=== PATIENT | male | born 1950 | race Two or more races ===

== ENCOUNTER 2023-09-14 18:48 | Emergency (ER) | payer OTHER ==
[~2023-09-14] VITALS: Ht 170.2 cm; Wt 90.7 kg
[2023-09-14] MEDS ORDERED: XARELTO10 MG (19:04)
[2023-09-14] MEDS ORDERED: GLUMETZA500 MG (19:04)
[2023-09-14] MEDS ORDERED: CHILDREN'S ASPI81 MG (19:05)
[2023-09-14] MEDS ORDERED: NASAL MIST126 ML (19:05)
[2023-09-14] MEDS ORDERED: TROPOL (19:05)
[2023-09-14 20:20] LABS: HEMATOCRIT 44.7 % (39.0-48.0); HEMOGLOBIN 15.1 g/dL (13-16.00); MEAN CELL VOLUME 82.1 fL (80.0-100.00); MEAN CORPUSCULAR HEMOGLOBIN 27.6 pg (27.00-32.0); MEAN CORPUSCULAR HGB CONC 33.6 g/dl (32.0-36.0); PLATELET COUNT 240 K/uL (150-450); RED BLOOD COUNT 5.45 M/uL (4.00-6.00); RED CELL DISTRIBUTION WIDTH 16.2 % (11.5-14.5)
[2023-09-14 20:54] LABS: ALBUMIN 4.2 gm/dL (3.4-5.0); BILIRUBIN TOTAL 1.7 mg/dL (0.3-1.2); CALCIUM 9.7 mg/dL (8.5-10.1); CREATININE SERUM 1.29 mg/dL (0.70-1.30); GFR 54.9; GLOBULINA 3.3 G/DL (2.4-3.5); POTASSIUM 4.79 mEq/L (3.5-5.1); TOTAL PROTEIN 7.5 gm/dL (6.4-8.2)
== END 2023-09-14 22:28 | disposition home or self-care (01) ==
LOC: ER 18:50
PROVIDERS: General Practice
DX: R53.81 Other malaise (principal); G45.9 Transient cerebral ischemic attack, unspecified; I95.9 Hypotension, unspecified; I10 Essential (primary) hypertension; E11.9 Type 2 diabetes mellitus without complications; Z79.84 Long term (current) use of oral hypoglycemic drugs